=== PATIENT | female | born 1990 | race African-American/Black ===

== ENCOUNTER 2018-12-10 08:59 | Observation (INO) ==
[2018-12-10] MEDS ORDERED: SODIUM CHLORIDE 0.9% 1,000 ML IV STA (09:26)
[2018-12-10 10:02] LABS: Basophils % 0.2 % (0.0-0.8); Eosinophils % 0.7 % (0.00-10.9); Hematocrit 37.8 VOL% (35.7-47.0); Immature Granulocytes % 0.2 %; Immature Granulocytes Absolute 0.01 #; Lymphocytes # 0.9 10*3/uL (1.4-4.0); Mean Corpuscular HGB Conc 31.7 GM/DL (32-36); Mean Corpuscular Hemoglobin 27 PG (27-34); Mean Corpuscular Volume 85.7 FL (87-102); Mean Platelet Volume 10.7 FL (9.6-12.0); Monocytes # 0.4 10*3/uL (0.11-0.8); Monocytes % 8.5 % (1.7-12.7); Neutrophils % 70.4 % (38.7-73.9); Platelet Count 205 T/CUMM (130-400); Red Blood Count 4.41 MC/CUMM (3.8-5.5); Red Cell Distribution Width 14.8 % (9.3-17.3); White Blood Count 4.3 T/CUMM (4-12)
[2018-12-10 10:23] LABS: Calcium 9.2 MG/DL (8.5-10.1); Osmolality,Calculated 272.8 MOS/KG (273-304); Potassium 3.5 MMOL/L (3.5-5.1)
[2018-12-10 11:31] LABS: Apearance,Urine CLOUDY (Clear); Bilirubin,Urine Negative (Negative); Blood, Urine Negative (Negative); Glucose,Urine (UA) Negative (Negative); Ketones,Urine 80 mg/dL (Negative); Mucus,Urine Many /LPF (Occasional); Nitrite,Urine Negative (Negative); Protein,Urine 30 MG/DL; RBC,Urine 4 /HPF (0-4); Squamous Epithelial Cell,Urine Few /HPF (0-10); Urine Color Yellow (Yellow); Urine Specific Gravity 1.023 (1.001-1.035); WBC,Urine 11 /HPF (0-6)
[2018-12-10 11:50] LABS: Beta HCG Titer 95903.71 mIU/ml (1-3)
[2018-12-10] MEDS ORDERED: AMPICILLIN INJ 2,000 MG in SODIUM CHLORIDE 0.9% 100 ML IV STA (12:00)
[2018-12-10] MEDS ORDERED: IBUPROFEN 800 MG TABLET PO PRN (12:54)
[2018-12-10] MEDS ORDERED: MAGNESIUM HYDROXIDE SUSP 30 ML UDCUP PO PRN (12:54)
[2018-12-10] MEDS ORDERED: BISACODYL 10 MG SUPP RECTAL PRN (12:54)
[2018-12-10] MEDS ORDERED: ACETAMINOPHEN 325 MG TABLET PO PRN (12:54)
[2018-12-10] MEDS: LACTATED RINGERS 1,000 ML IV SCH ×2 (13:47→21:22)
[2018-12-10] MEDS: ONDANSETRON 4 MG/2 ML VIAL IV PRN ×2 (16:52→22:40)
[2018-12-10] MEDS: AMPICILLIN INJ 1,000 MG in SODIUM CHLORIDE 0.9% 100 ML IV SCH (20:12)
[2018-12-11] MEDS: DOCUSATE SODIUM 100 MG CAPSULE PO SCH ×2 (02:18→08:46)
[2018-12-11] MEDS: AMPICILLIN INJ 1,000 MG in SODIUM CHLORIDE 0.9% 100 ML IV SCH ×2 (02:19→08:45)
[2018-12-11] MEDS: LACTATED RINGERS 1,000 ML IV SCH (04:49)
[2018-12-11 07:46] VITALS: BP 75/47
[2018-12-11] MEDS: ONDANSETRON 4 MG/2 ML VIAL IV PRN (08:40)
== END 2018-12-11 10:30 | disposition home or self-care (01) ==
LOC: N.ED 08:59 → N.EDINP 08:59 → N.OB 12:46
PROVIDERS: ADMIT Obstetrics & Gynecology; ATTEND Obstetrics & Gynecology

== ENCOUNTER 2018-12-30 12:03 | Observation (INO) ==
[2018-12-30] MEDS ORDERED: ONDANSETRON 4 MG/2 ML VIAL IV PRN (12:21)
[2018-12-30] MEDS ORDERED: ZALEPLON 5 MG CAPSULE PO PRN (12:21)
[2018-12-30] MEDS: LACTATED RINGERS 1,000 ML IV SCH (13:10)
[2018-12-30 13:15] LABS: Basophils % 0.2 % (0.0-0.8); Eosinophils % 0.8 % (0.00-10.9); Hematocrit 38.1 VOL% (35.7-47.0); Hemoglobin 12.2 GM/DL (12.0-16.0); Immature Granulocytes % 0.8 %; Immature Granulocytes Absolute 0.04 #; Lymphocytes # 0.9 10*3/uL (1.4-4.0); Lymphocytes % 17.8 % (21.3-54.2); Mean Corpuscular Hemoglobin 28 PG (27-34); Mean Platelet Volume 11.3 FL (9.6-12.0); Monocytes # 0.3 10*3/uL (0.11-0.8); Monocytes % 6.1 % (1.7-12.7); Neutrophils # 3.8 10*3/uL (1.4-7.4); Neutrophils % 74.3 % (38.7-73.9); Platelet Count 173 T/CUMM (130-400); Red Blood Count 4.43 MC/CUMM (3.8-5.5); Red Cell Distribution Width 14.9 % (9.3-17.3); White Blood Count 5.1 T/CUMM (4-12)
[2018-12-30] MEDS: FAMOTIDINE 20 MG/2 ML VIAL IV SCH ×2 (13:21→23:58)
[2018-12-30] MEDS: METOCLOPRAMIDE 10 MG/2 ML VIAL IV SCH ×2 (13:24→21:02)
[2018-12-30 13:32] LABS: Albumin 4.1 G/DL (3.4-5.0); Bilirubin,Total 1.2 MG/DL (0.2-1.0); Calcium 9.4 MG/DL (8.5-10.1); Osmolality,Calculated 262.5 MOS/KG (273-304); Potassium 3.2 MMOL/L (3.5-5.1)
[2018-12-30 13:38] LABS: Free T4 (Free Thyroxine) 1.32 NG/DL (0.76-1.46); Thyroid Stimulating Hormone 0.195 uIU/ml (0.358-3.74)
[2018-12-30 13:45] LABS: Apearance,Urine CLOUDY (Clear); Bilirubin,Urine Negative (Negative); Blood, Urine Negative (Negative); Glucose,Urine (UA) Negative (Negative); Ketones,Urine 80 mg/dL (Negative); Mucus,Urine Many /LPF (Occasional); Nitrite,Urine Negative (Negative); Protein,Urine 30 MG/DL; RBC,Urine 8 /HPF (0-4); Squamous Epithelial Cell,Urine Many /HPF (0-10); Urine Color Amber (Yellow); Urine Specific Gravity 1.029 (1.001-1.035); WBC,Urine 22 /HPF (0-6)
[2018-12-30] MEDS ORDERED: cephALEXin 500 MG CAPSULE PO SCH (14:00)
[2018-12-30] MEDS ORDERED: cefTRIAXone 1,000 MG in SYRINGE 1 EACH IV ONE (14:13)
[2018-12-30] MEDS ORDERED: SODIUM CHLORIDE 0.9% 100 ML IV ONE (14:17)
[2018-12-30] MEDS: POTASSIUM CHLORIDE INJ 10 MEQ in LACTATED RINGERS 1,000 ML IV SCH (19:42)
[2018-12-31] MEDS: LACTATED RINGERS 1,000 ML IV SCH ×2 (03:20→10:20)
[2018-12-31] MEDS: METOCLOPRAMIDE 10 MG/2 ML VIAL IV SCH (04:35)
[2018-12-31] MEDS ORDERED: MAGNESIUM HYDROXIDE SUSP 30 ML UDCUP PO PRN (10:00)
[2018-12-31] MEDS: POTASSIUM CHLORIDE INJ 10 MEQ in LACTATED RINGERS 1,000 ML IV SCH ×2 (10:09→10:20)
[2018-12-31] MEDS ORDERED: BISACODYL 10 MG SUPP RECTAL PRN (10:10)
[2018-12-31] MEDS ORDERED: METOCLOPRAMIDE 10 MG TABLET PO SCH (12:00)
[2018-12-31] MEDS ORDERED: FAMOTIDINE 20 MG TABLET PO SCH (12:00)
[2018-12-31 12:11] VITALS: BP 92/54
[2018-12-31 12:12] LABS: Albumin 2.9 G/DL (3.4-5.0); Bilirubin,Total 0.5 MG/DL (0.2-1.0); Calcium 8.1 MG/DL (8.5-10.1); Osmolality,Calculated 270.8 MOS/KG (273-304); Potassium 3.5 MMOL/L (3.5-5.1); Total Protein 6.2 G/DL (6.4-8.3)
== END 2018-12-31 02:30 | disposition home or self-care (01) ==
LOC: N.OB
PROVIDERS: ADMIT Obstetrics & Gynecology; ATTEND Obstetrics & Gynecology

== ENCOUNTER 2019-01-20 15:20 | Inpatient (IN) ==
[2019-01-20 16:03] LABS: Basophils % 0.2 % (0.0-0.8); Eosinophils # 0.1 10*3/uL (0.0-0.87); Hemoglobin 12.6 GM/DL (12.0-16.0); Immature Granulocytes % 0.2 %; Immature Granulocytes Absolute 0.01 #; Lymphocytes # 0.9 10*3/uL (1.4-4.0); Lymphocytes % 15.1 % (21.3-54.2); Mean Corpuscular HGB Conc 32.3 GM/DL (32-36); Mean Corpuscular Hemoglobin 28 PG (27-34); Mean Corpuscular Volume 85.5 FL (87-102); Mean Platelet Volume 10.7 FL (9.6-12.0); Monocytes # 0.5 10*3/uL (0.11-0.8); Monocytes % 7.6 % (1.7-12.7); Neutrophils # 4.6 10*3/uL (1.4-7.4); Neutrophils % 75.9 % (38.7-73.9); Platelet Count 258 T/CUMM (130-400); Red Blood Count 4.56 MC/CUMM (3.8-5.5); Red Cell Distribution Width 14.6 % (9.3-17.3)
[2019-01-20] MEDS: LACTATED RINGERS 1,000 ML IV SCH (16:03)
[2019-01-20 16:19] LABS: Albumin 3.4 G/DL (3.4-5.0); Bilirubin,Total 0.5 MG/DL (0.2-1.0); Calcium 9.1 MG/DL (8.5-10.1); Osmolality,Calculated 269.1 MOS/KG (273-304); Potassium 3.9 MMOL/L (3.5-5.1)
[2019-01-20] MEDS: methylPREDNISolone SOD SUC 40 MG/1 ML VIAL IV SCH (16:50)
[2019-01-20] MEDS: FAMOTIDINE 20 MG/2 ML VIAL IV SCH (16:53)
[2019-01-20] MEDS: ONDANSETRON 4 MG/2 ML VIAL IV PRN ×2 (18:29→22:30)
[2019-01-20] MEDS ORDERED: ALUMINUM/MAGNES/SIMETH MAX STR 30 ML UDCUP PO PRN (19:28)
[2019-01-20] MEDS ORDERED: MULTIVITAMIN INJ 10 ML in SODIUM CHLORIDE 0.9% 1,000 ML IV SCH (20:00)
[2019-01-20] MEDS: PYRIDOXINE 50 MG TABLET PO SCH (20:54)
[2019-01-20] MEDS: DOCUSATE SODIUM 100 MG CAPSULE PO PRN (20:54)
[2019-01-21] MEDS ORDERED: ACETAMINOPHEN 325 MG TABLET PO PRN (00:38)
[2019-01-21] MEDS: methylPREDNISolone SOD SUC 40 MG/1 ML VIAL IV SCH ×3 (00:39→16:39)
[2019-01-21] MEDS ORDERED: ACETAMINOPHEN 325 MG/10.15 ML UDCUP PO PRN (00:46)
[2019-01-21] MEDS: FAMOTIDINE 20 MG/2 ML VIAL IV SCH ×2 (04:26→16:12)
[2019-01-21] MEDS: LACTATED RINGERS 1,000 ML IV SCH ×2 (05:57→14:18)
[2019-01-21] MEDS: ONDANSETRON 4 MG/2 ML VIAL IV PRN ×2 (06:08→11:55)
[2019-01-21] MEDS: PYRIDOXINE 50 MG TABLET PO SCH ×4 (09:03→20:19)
[2019-01-21] MEDS ORDERED: MAGNESIUM HYDROXIDE SUSP 30 ML UDCUP PO PRN (19:31)
[2019-01-21] MEDS: DOCUSATE SODIUM 100 MG CAPSULE PO PRN (19:40)
[2019-01-21] MEDS ORDERED: MULTIVITAMIN INJ 10 ML in SODIUM CHLORIDE 0.9% 1,000 ML IV SCH (20:00)
[2019-01-22] MEDS: methylPREDNISolone SOD SUC 40 MG/1 ML VIAL IV SCH (00:37)
[2019-01-22] MEDS: FAMOTIDINE 20 MG/2 ML VIAL IV SCH (04:12)
[2019-01-22] MEDS: LACTATED RINGERS 1,000 ML IV SCH (06:00)
[2019-01-22] MEDS ORDERED: ONDANSETRON 4 MG TABLET PO PRN (07:56)
[2019-01-22 07:57] VITALS: BP 91/48
[2019-01-22] MEDS ORDERED: FAMOTIDINE 20 MG TABLET PO SCH (09:00)
[2019-01-22] MEDS ORDERED: predniSONE 20 MG TABLET PO SCH (09:00)
[2019-01-22] MEDS ORDERED: PANTOPRAZOLE 20 MG TABLET PO SCH (09:30)
[2019-01-22] MEDS: PYRIDOXINE 50 MG TABLET PO SCH (11:30)
[2019-01-22] MEDS: DOCUSATE SODIUM 100 MG CAPSULE PO PRN (12:30)
[2019-01-22 12:45] LABS: Amorphous Crystals,Urine Occasional /HPF (Few); Apearance,Urine CLEAR (Clear); Bacteria,Urine Occasional /HPF (Few); Bilirubin,Urine Negative (Negative); Blood, Urine Negative (Negative); Glucose,Urine (UA) 50 mg/dL (Negative); Ketones,Urine Negative (Negative); Mucus,Urine Occasional /LPF (Occasional); Nitrite,Urine Negative (Negative); Protein,Urine Negative; RBC,Urine <1 /HPF (0-4); Squamous Epithelial Cell,Urine Occasional /HPF (0-10); Urine Color Straw (Yellow); Urine Urobilinogen < 2.0 EU/DL (0.2-1.0); WBC,Urine <1 /HPF (0-6)
== END 2019-01-22 15:20 | disposition home or self-care (01) | DRG 566 ==
LOC: N.OB → OBSVTOIN 15:35
PROVIDERS: ADMIT Obstetrics & Gynecology; ATTEND Obstetrics & Gynecology

== ENCOUNTER 2019-07-12 03:47 | Inpatient (IN) ==
[2019-07-12 04:48] LABS: Apearance,Urine CLOUDY (Clear); Bacteria,Urine Occasional /HPF (Few); Bilirubin,Urine Negative (Negative); Blood, Urine Negative (Negative); Glucose,Urine (UA) Negative (Negative); Ketones,Urine 80 mg/dL (Negative); Mucus,Urine Few /LPF (Occasional); Nitrite,Urine Negative (Negative); Protein,Urine 30 MG/DL; RBC,Urine 8 /HPF (0-4); Squamous Epithelial Cell,Urine Many /HPF (0-10); Urine Specific Gravity 1.026 (1.001-1.035); Urine Urobilinogen < 2.0 EU/DL (0.2-1.0); WBC,Urine 31 /HPF (0-6)
[2019-07-12 04:49] LABS: Urine Color Dark yellow (Yellow)
[2019-07-12] MEDS: LACTATED RINGERS 1,000 ML IV SCH ×2 (04:50→05:13)
[2019-07-12] MEDS ORDERED: ONDANSETRON 4 MG/2 ML VIAL IV ONE (04:58)
[2019-07-12] MEDS ORDERED: BUTORPHANOL 1 MG/ML VIAL IV ONE (04:58)
[2019-07-12] MEDS ORDERED: ceFAZolin 2,000 MG in PREMIX 1 EACH IV ONE (05:32)
[2019-07-12 05:35] LABS: Basophils % 0.2 % (0.0-0.8); Eosinophils % 0.9 % (0.00-10.9); Hematocrit 29.8 VOL% (35.7-47.0); Hemoglobin 8.8 GM/DL (12.0-16.0); Immature Granulocytes % 0.2 %; Immature Granulocytes Absolute 0.01 #; Lymphocytes # 1.1 10*3/uL (1.4-4.0); Lymphocytes % 23.8 % (21.3-54.2); Mean Corpuscular HGB Conc 29.5 GM/DL (32-36); Mean Corpuscular Volume 75.4 FL (87-102); Monocytes % 10.9 % (1.7-12.7); Platelet Count 180 T/CUMM (130-400); Red Blood Count 3.95 MC/CUMM (3.8-5.5); Red Cell Distribution Width 17.3 % (9.3-17.3); White Blood Count 4.5 T/CUMM (4-12)
[2019-07-12 05:58] LABS: Albumin 2.5 G/DL (3.4-5.0); Bilirubin,Total 0.4 MG/DL (0.2-1.0); Calcium 8.4 MG/DL (8.5-10.1); Osmolality,Calculated 275.4 MOS/KG (273-304)
[2019-07-12] MEDS ORDERED: CITRIC ACID/SODIUM CITRATE 30 ML UDCUP PO PRN (06:58)
[2019-07-12] MEDS ORDERED: FAMOTIDINE 20 MG/2 ML VIAL IV PRN (06:59)
[2019-07-12] MEDS ORDERED: OXYTOCIN/LR 20 UNIT/1,000 ML BAG IV ONE ×3 (10:32→13:29)
[2019-07-12 11:52] LABS: Apearance,Urine CLEAR (Clear); Bilirubin,Urine Negative (Negative); Blood, Urine Negative (Negative); Glucose,Urine (UA) Negative (Negative); Ketones,Urine 20 mg/dL (Negative); Nitrite,Urine Negative (Negative); Protein,Urine Negative; RBC,Urine <1 /HPF (0-4); Urine Color Straw (Yellow); Urine Specific Gravity 1.008 (1.001-1.035); Urine Urobilinogen < 2.0 EU/DL (0.2-1.0); WBC,Urine <1 /HPF (0-6)
[2019-07-12] MEDS ORDERED: BUPIVACAINE SPINAL 0.75% 2 ML AMP SPINAL ONE (12:27)
[2019-07-12] MEDS ORDERED: BUPIVACAINE 0.5% 50 ML VIAL ONE (12:27)
[2019-07-12] MEDS ORDERED: DEXAMETHASONE 4 MG/1 ML VIAL ONE (12:28)
[2019-07-12] MEDS ORDERED: PHENYLEPHRINE 1 MG/10 ML SYRINGE IV ONE (12:28)
[2019-07-12] MEDS ORDERED: ONDANSETRON 4 MG/2 ML VIAL ONE (12:28)
[2019-07-12] MEDS ORDERED: EPINEPHrine 1 MG/ML VIAL ONE (12:28)
[2019-07-12] MEDS ORDERED: MORPHINE 10 MG/10 ML VIAL ONE (12:28)
[2019-07-12] MEDS ORDERED: ceFAZolin 1,000 MG in SYRINGE 1 EACH IV SCH (15:00)
[2019-07-12] MEDS ORDERED: diphenhydrAMINE 50 MG/1 ML VIAL ONE (15:33)
[2019-07-12] MEDS: diphenhydrAMINE 50 MG/1 ML VIAL IV PRN ×2 (16:06→16:07)
[2019-07-12] MEDS: DOCUSATE SODIUM 100 MG CAPSULE PO SCH (21:58)
[2019-07-13] MEDS: IBUPROFEN 800 MG TABLET PO PRN ×3 (03:09→19:51)
[2019-07-13 05:35] LABS: Basophils % 0.1 % (0.0-0.8); Hematocrit 24.4 VOL% (35.7-47.0); Hemoglobin 7.4 GM/DL (12.0-16.0); Immature Granulocytes % 0.7 %; Lymphocytes # 0.8 10*3/uL (1.4-4.0); Lymphocytes % 5.9 % (21.3-54.2); Mean Corpuscular HGB Conc 30.3 GM/DL (32-36); Mean Corpuscular Volume 74.4 FL (87-102); Mean Platelet Volume 10.6 FL (9.6-12.0); Monocytes % 8.1 % (1.7-12.7); Neutrophils % 85.2 % (38.7-73.9); Platelet Count 171 T/CUMM (130-400); Red Blood Count 3.28 MC/CUMM (3.8-5.5); Red Cell Distribution Width 17.2 % (9.3-17.3)
[2019-07-13] MEDS: DOCUSATE SODIUM 100 MG CAPSULE PO SCH ×2 (08:57→22:03)
[2019-07-13] MEDS: FERROUS SULFATE 325 MG TABLET PO SCH ×3 (08:57→22:03)
[2019-07-13] MEDS: MAGNESIUM HYDROXIDE SUSP 30 ML UDCUP PO PRN ×2 (10:32→22:03)
[2019-07-14] MEDS ORDERED: SIMETHICONE CHEW 80 MG TABLET PO PRN (06:25)
[2019-07-14 07:30] VITALS: BP 101/60
[2019-07-14] MEDS: FERROUS SULFATE 325 MG TABLET PO SCH (08:53)
[2019-07-14] MEDS: MAGNESIUM HYDROXIDE SUSP 30 ML UDCUP PO PRN (08:53)
[2019-07-14] MEDS: DOCUSATE SODIUM 100 MG CAPSULE PO SCH (08:53)
== END 2019-07-14 13:50 | disposition home or self-care (01) | DRG 540 ==
LOC: N.LDOUT 03:47 → N.LD 03:48 → N.OB 14:34
PROVIDERS: ADMIT Obstetrics & Gynecology; ATTEND Obstetrics & Gynecology
PROC: LDCSECT (ICD-10-PCS; 2019-07-12 10:30)

== ENCOUNTER 2019-07-20 15:58 | Observation (INO) ==
[2019-07-20] MEDS ORDERED: SUMAtriptan 6 MG/0.5 ML VIAL SUBCUT STA (18:25)
[2019-07-20] MEDS ORDERED: LACTATED RINGERS 1,000 ML IV ONE (18:25)
[2019-07-20] MEDS ORDERED: BUTALBITAL/ACETAMIN/CAFFEINE 50-325-40 MG TABLET PO PRN (18:25)
[2019-07-20] MEDS ORDERED: BUTALBITAL/ACETAMIN/CAFFEINE 50-325-40 MG TABLET PO STA (18:26)
[2019-07-20] MEDS ORDERED: MORPHINE 4 MG/1 ML VIAL IV PRN (19:40)
[2019-07-20] MEDS ORDERED: ONDANSETRON 4 MG/2 ML VIAL IV PRN (19:40)
[2019-07-20 20:40] LABS: Apearance,Urine CLEAR (Clear); Bacteria,Urine Occasional /HPF (Few); Bilirubin,Urine Negative (Negative); Blood, Urine Negative (Negative); Glucose,Urine (UA) Negative (Negative); Ketones,Urine 20 mg/dL (Negative); Mucus,Urine Occasional /LPF (Occasional); Nitrite,Urine Negative (Negative); Protein,Urine Negative; RBC,Urine 5 /HPF (0-4); Squamous Epithelial Cell,Urine Occasional /HPF (0-10); Urine Color Yellow (Yellow); Urine Specific Gravity 1.015 (1.001-1.035); Urine Urobilinogen < 2.0 EU/DL (0.2-1.0); WBC,Urine 22 /HPF (0-6)
[2019-07-20] MEDS ORDERED: ENOXAPARIN 40 MG/0.4 ML SYRINGE SUBCUT SCH (21:00)
[2019-07-20] MEDS: SODIUM CHLORIDE 0.9% 1,000 ML IV SCH (21:11)
[2019-07-20 21:13] LABS: Hematocrit 34.2 VOL% (35.7-47.0); Hemoglobin 9.9 GM/DL (12.0-16.0); Immature Granulocytes % 0.4 %; Immature Granulocytes Absolute 0.04 #; Mean Corpuscular HGB Conc 28.9 GM/DL (32-36); NRBC # 0.02 10*3/uL
[2019-07-20 21:31] LABS: Anisocytosis 1+; Hypochromasia 1+; Platelet Estimate Adequate; Polychromasia Few
[2019-07-20 21:34] LABS: Basophils % 0.1 % (0.0-0.8); Eosinophils # 0.1 10*3/uL (0.0-0.87); Eosinophils % 1.1 % (0.00-10.9); Lymphocytes # 1.4 10*3/uL (1.4-4.0); Lymphocytes % 13.6 % (21.3-54.2); Mean Corpuscular Volume 78.8 FL (87-102); Mean Platelet Volume 9.7 FL (9.6-12.0); Monocytes % 7.2 % (1.7-12.7); Neutrophils % 77.6 % (38.7-73.9); Platelet Count 392 T/CUMM (130-400); Red Blood Count 4.34 MC/CUMM (3.8-5.5); Red Cell Distribution Width 21.8 % (9.3-17.3)
[2019-07-20 21:56] LABS: Alanine Aminotransferase 25 U/L (13-56); Alkaline Phosphatase 83 U/L (45-117); Aspartate Amino Transferase 18 U/L (0-37); Bilirubin,Total < 0.39 MG/DL (0.2-1.0); Blood Urea Nitrogen 13 MG/DL (7-18); Calcium 8.8 MG/DL (8.5-10.1); Estimated Glom Filtration Rate 119 ML/MIN; Glucose 80 MG/DL (74-106); Osmolality,Calculated 286.7 MOS/KG (273-304); Total Protein 6.9 G/DL (6.4-8.3)
[2019-07-21] MEDS: SODIUM CHLORIDE 0.9% 1,000 ML IV SCH ×2 (05:11→16:09)
[2019-07-21] MEDS ORDERED: PANTOPRAZOLE 40 MG TABLET PO SCH (09:00)
[2019-07-21 17:04] VITALS: BP 140/86
== END 2019-07-21 17:54 | disposition home or self-care (01) ==
LOC: EDUNIT# → N.EDINP 15:58 → N.ED 15:58 → SUATTDRO 19:40 → N.5E 20:07
PROVIDERS: ADMIT Internal Medicine; ATTEND Internal Medicine